=== PATIENT | male | born 1995 | race Caucasian/White ===

== ENCOUNTER 2018-05-25 23:26 | Emergency (ER) ==
[~2018-05-25] VITALS: Ht 175.3 cm; Wt 65.3 kg
--- NOTE | 2018-05-26 00:15 | NUR ---
TO ER BED 7. C/O NUMBNESS/ COLDNESS TO GENITAL AREA X2 DAYS. A/O X4. "SOMETIMES I FEEL LIGHTHEADED WHEN I STAND UP" NO S/SX OF RESPIRATORY DISTRESS. AMBULATED TO BED WITH STABLE GAIT. MOVES ALL EXTREMITIES WELL. DENIES N/V/D. NAD. VSS. STABLE CONDITION. WILL MONITOR FOR CHANGES.
[2018-05-26 01:19] LABS: APPEARANCE,URINE CLEAR (CLEAR); BILIRUBIN,URINE NEGATIVE (NEGATIVE); BLOOD, URINE NEGATIVE Ery/uL (NEGATIVE); COLOR,URINE YELLOW (YELLOW); KETONES,URINE NEGATIVE (NEGATIVE); LEUKOCYTE ESTERASE ,URINE NEGATIVE (NEGATIVE); NITRITE, URINE NEGATIVE (NEGATIVE); PH,URINE 5.5 (5.0-8.0); PROTEIN,URINE NEGATIVE (NEGATIVE); UGLUCOSE NEGATIVE (NEGATIVE); UROBILINOGEN,URINE 0.2 EU/dL (0.2)
[2018-05-26 01:38] VITALS: BP 134/52
== END 2018-05-26 02:10 | disposition home or self-care (01) ==
LOC: ER 23:32
DX: N52.9 Male erectile dysfunction, unspecified (principal)
CPT/HCPCS: 81000-TC; 87491; 87591; A4606; Z7610

== ENCOUNTER 2018-07-04 19:57 | Emergency (ER) | payer OTHER ==
[~2018-07-04] VITALS: Ht 175.3 cm; Wt 65.8 kg
[2018-07-04] MEDS ORDERED: ONDANSETRON HCL/PF 4 MG/2 ML VIAL IVP ONE (20:30)
[2018-07-04] MEDS ORDERED: IV NS 0.9% 1,000 ML BAG IV ONE (20:30)
--- NOTE | 2018-07-04 20:30 | NUR ---
Pt walked in for RLQ pain, no N/V. A, O/4, moves all extremities without difficulty, on RA, no distress at this time. Requested that RN speaks to his mother on the phone, did as requested.
[2018-07-04 20:38] LABS: BASOPHILS % (AUTO) 0.4 % (0.0-2.0); EOSINOPHILS % (AUTO) 1.3 % (0.0-6.0); HEMATOCRIT 41 % (39-51); LYMPHOCYTES # (AUTO) 1.8 /CMM (0.8-4.8); LYMPHOCYTES % (AUTO) 42.1 % (20.0-44.0); MEAN CORPUSCULAR HGB CONC 34 g/dl (31.0-36.0); MEAN CORPUSCULAR VOLUME 92 fL (80-96); MONOCYTES # (AUTO) 0.3 /CMM (0.1-1.30); NEUTROPHILS # (AUTO) 2.1 /CMM (1.8-8.9); NEUTROPHILS % (AUTO) 49.2 % (43.0-81.0); PLATELET COUNT (AUTO) 224 /CMM (150-450); RED BLOOD CELL COUNT(AUTO) 4.43 MIL/uL (4.5-6.0); WHITE BLOOD COUNT (AUTO) 4.3 K/uL (4.3-11.0)
[2018-07-04] MEDS ORDERED: ONDANSETRON HCL/PF 4 MG/2 ML VIAL ONE (20:40)
[2018-07-04 20:43] LABS: APPEARANCE,URINE Clear (CLEAR); BILIRUBIN,URINE Negative (NEGATIVE); BLOOD, URINE Negative Ery/uL (NEGATIVE); COLOR,URINE Yellow (YELLOW); KETONES,URINE Negative (NEGATIVE); LEUKOCYTE ESTERASE ,URINE Negative (NEGATIVE); NITRITE, URINE Negative (NEGATIVE); PH,URINE 7.5 (5.0-8.0); PROTEIN,URINE Negative (NEGATIVE); UGLUCOSE Negative (NEGATIVE)
[2018-07-04 20:44] LABS: CALCIUM, SERUM 8.7 mg/dL (8.5-10.1)
--- NOTE | 2018-07-04 20:45 | NUR ---
Pt refused IV fluids and Zofran administration. He stated "I feel fine." Wheeled to Radiology for CT Scan of Abd.
[2018-07-04 20:50] LABS: ALBUMIN 4.3 g/dL (3.4-5.0); BILIRUBIN,DIRECT 0.1 mg/dL (0.0-0.2); BILIRUBIN,TOTAL 0.7 mg/dL (0.2-1.0); TOTAL PROTEIN, SERUM 7.9 g/dL (6.4-8.2)
--- NOTE | 2018-07-04 20:51 | NUR ---
Pt back from procedure. Notified MD of refusal for IV meds.
--- NOTE | 2018-07-04 21:40 | NUR ---
Pt does not appear in distress, no abd pain reported and states "only a little bit of discomfort"
[2018-07-04 21:46] VITALS: BP 100/48
== END 2018-07-04 21:47 | disposition home or self-care (01) ==
LOC: ER 19:58
DX: R10.31 Right lower quadrant pain (principal); Z60.2 Problems related to living alone
CPT/HCPCS: 36415; 74176; 80048; 80076; 81001; 83690; 85025; 99284; A4606; J2405; J7030; Z7610; 81000-TC